=== PATIENT | male | born 1955 | race Caucasian/White ===

== ENCOUNTER → 2016-03-22 | Outpatient (CLI) | payer MEDICARE ==
[2016-03-22 14:06] LABS: HEMATOCRIT 43.3 % (37.9-51.0); HEMOGLOBIN 14.9 g/dL (13.5-17.0); HGB HCT DIFFERENCE 1.4; MEAN CORPUSCULAR HEMOGLOBIN 32.3 pg (27.0-33.4); MEAN CORPUSCULAR HGB CONC 34.4 g/dL (32.0-36.0); MEAN CORPUSCULAR VOLUME 94 fl (80-97); RED BLOOD COUNT 4.61 10^6/uL (4.35-5.55); RED CELL DISTRIBUTION WIDTH 14.4 % (11.5-14.0); WHITE BLOOD COUNT 5.3 10^3/uL (4.0-10.5)
[2016-03-22 14:27] LABS: ALANINE AMINOTRANSFERASE 36 U/L (21-72); ALBUMIN 4.1 g/dL (3.5-5.0); ALKALINE PHOSPHATASE 47 U/L (38-126); ANION GAP 12 (5-19); ASPARTATE AMINO TRANSFERASE 23 U/L (17-59); BILIRUBIN,TOTAL 0.6 mg/dL (0.2-1.3); BLOOD UREA NITROGEN 32 mg/dL (7-20); CALCIUM 9.6 mg/dL (8.4-10.2); CARBON DIOXIDE 29 mmol/L (22-30); CHLORIDE 101 mmol/L (98-107); CREATININE RESULT 1.23 mg/dL (0.52-1.25); Direct HDL 24 mg/dL (>40); GLUCOSE 218 mg/dL (75-110); POTASSIUM 5.4 mmol/L (3.6-5.0); TRIGLYCERIDES 172 mg/dL (<150)
[2016-03-22 14:38] LABS: DIRECT LDL 72 mg/dL (<100)
[2016-03-22 14:41] LABS: VLDL CHOLESTEROL 34.4 mg/dL (10-31)
== END ==
LOC: OD 12:39
PROVIDERS: ATTEND Nurse Practitioner
DX: E11.9 Type 2 diabetes mellitus without complications (principal); E03.9 Hypothyroidism, unspecified; R51 Headache; Z79.01 Long term (current) use of anticoagulants; Z79.899 Other long term (current) drug therapy; Z51.81 Encounter for therapeutic drug level monitoring
CPT/HCPCS: 36415; 80053; 80061; 83036; 84443; 85027; 85610

== ENCOUNTER → 2016-05-24 | Outpatient (CLI) | payer MEDICARE | LOC: RAD 09:56 | PROVIDERS: ATTEND Internal Medicine | DX: R10.9 Unspecified abdominal pain (principal); R10.2 Pelvic and perineal pain; D38.1 Neoplasm of uncertain behavior of trachea, bronchus and lung | CPT/HCPCS: 71260; 74177; 82565 ==

== ENCOUNTER 2016-09-25 17:13 | Emergency (ER) | payer MEDICARE ==
--- NOTE | 2016-09-25 18:18 | RADIOLOGY REPORT (SQ) ---
EXAM DESCRIPTION: CT CERVICAL SPINE WITHOUT COMPLETED DATE/TIME: 09/25/2016 6:04 pm REASON FOR STUDY: 10, Fall; h/o aphasia and stroke COMPARISON: None. TECHNIQUE: Axial images acquired through the cervical spine without intravenous contrast. Images re viewed with lung, soft tissue and bone windows. Reconstructed coronal and sagittal MPR images review ed. Images stored on PACS. All CT scanners at this facility use dose modulation, iterative reconstruction, and/or weight based d osing when appropriate to reduce radiation dose to as low as reasonably achievable (ALARA). [facility]: Dose Right [facility]: CareDose [facility]: Dose Right [facility]: Teradose 4D [facility]: [employer] RADIATION DOSE: Up-to-date CT equipment and radiation dose reduction techniques were employed. CTDIv ol: 24.2 mGy. DLP: 513 mGy-cm. mGy. LIMITATIONS: None. FINDINGS: ALIGNMENT: Anatomic. MINERALIZATION: Normal. VERTEBRAL BODIES: No fractures or dislocation. DISCS: Multilevel disc space narrowing with osteophytes. FACETS, LATERAL MASSES, POSTERIOR ELEMENTS: Facet arthropathy. No fractures. No dislocation. No ac ashly findings. HARDWARE: None in the spine. VISUALIZED RIBS: No fractures. LUNG APICES AND SOFT TISSUES: See separate CT chest report. OTHER: No other significant finding. IMPRESSION: CHRONIC DEGENERATIVE CHANGES. NO ACUTE FINDINGS. TECHNICAL DOCUMENTATION: JOB ID: [id number] [facility] [id number]: Final reports with documentation of one or more dose reduction techniques (e.g., Automate d exposure control, adjustment of the mA and/or kV according to patient size, use of iterative recons truction technique) 2010 [employer]- All Rights Reserved
--- NOTE | 2016-09-25 18:19 | ER Document Report ---
ED Fall - General Information source: Patient TRAVEL OUTSIDE OF THE U[place] IN LAST 30 DAYS: No - HPI Occurred: Just prior to arrival Where: Home Associated symptoms: Other - See above Location of injury/pain: Upper extremity Quality of pain: Dull <SAMMY BARAKAT - Last Filed: 09/25/16 19:58> <MEME BRICE - Last Filed: 09/26/16 00:49> - General Chief Complaint: Fall Stated Complaint: FALL HIP PAIN Time Seen by Provider: 09/25/16 17:35 Notes: 60-year-old male with past medical history of a stroke in 2011 causing some right-sided weakness as well as expressive and intermittent receptive aphasia. Patient was in the bathroom for a longer period of time than normal according to the who then went in to see the patient and found him laying face. The floor. Patient was unable to completely answer how this occurred. Patient supposedly was incontinent of stool and urine. Patient had a history of seizures previous but currently is not on antiseizure medications. denies any recent runny nose, congestion, fevers, vomiting, or diarrhea. states that the patient did answer that he was having some chest pain possibly after being found on the ground. states that the patient also was having some "raspy breathing" after the fall. Patient takes warfarin. Patient is not currently answering questions at this time. (SAMMY BARAKAT) - Related data Allergies/Adverse Reactions: No Known Allergies Allergy (Verified 12/30/14 17:56) Past Medical History - General Information source: Relative - Social History Smoking Status: Former Smoker Cigarette use (# per day): No Chew tobacco use (# tins/day): No Smoking Education Provided: No Frequency of alcohol use: None Drug Abuse: None Family History: Reviewed & Not Pertinent - Past Medical History Cardiac Medical History: Reports: Hx Atrial Fibrillation, Hx Congestive Heart Failure, Hx Hypertension Comment Only: Hx Heart Attack - quad bypass Endocrine Medical History: Reports: Hx Diabetes Mellitus Type 2 Past Surgical History: Reports: Hx Cardiac Surgery - pacer/defib <SAMMY BARAKAT - Last Filed: 09/25/16 19:58> Review of Systems - Review of Systems -: Yes ROS unobtainable due to patient's medical condition <SAMMY BARAKAT - Last Filed: 09/25/16 19:58> Physical Exam <SAMMY BARAKAT - Last Filed: 09/25/16 19:58> <MEME BRICE - Last Filed: 09/26/16 00:49> - Vital signs Vitals: Temp Pulse Resp BP Pulse Ox 98.0 F 70 17 171/83 H 93 09/25/16 17:41 09/25/16 17:41 09/25/16 17:41 09/25/16 17:41 09/25/16 17:41 Notes: Reviewed vital signs and nursing note as charted by RN. CONSTITUTIONAL: Patient tries to open and he does track me. He however does not answer questions and only intermittently follows commands HEAD: Normocephalic; atraumatic EYES: PERRL ENT: Normal nose; no rhinorrhea; moist mucous membranes; pharynx without lesions noted NECK: Supple without meningismus; non-tender; no cervical lymphadenopathy, no masses CARD: Regular rate and rhythm; no murmurs, no clicks, no rubs, no gallops; symmetric distal pulses RESP: Normal chest excursion without splinting or tachypnea; patient has some rhonchorous breath sounds bilaterally with no obvious wheezing or rales ABD/GI: Normal bowel sounds; non-distended; soft, non-tender; no palpable masses or bruits auscultated BACK: The back appears normal and is non-tender to palpation EXT: Has some bruising to the right anterior shoulder, no effusions, no edema SKIN: See above NEURO: Patient is moving his left arm and left leg intermittently. Minimal movement to the right arm and right leg. This is baseline according to the right. (SAMMY BARAKAT) Course - Laboratory Result Diagrams: 09/25/16 18:40 09/25/16 18:40 <SAMMY BARAKAT - Last Filed: 09/25/16 19:58> - Laboratory Result Diagrams: 09/25/16 18:40 09/25/16 18:40 <MEME BRICE - Last Filed: 09/26/16 00:49> - Re-evaluation Re-evalutation: Given the above history and physical examination, there is concern about possible head trauma, neck trauma, or back trauma. Given the difficulty in interviewing the patient, unwitnessed fall/syncopal episode/possible seizure we will CT scan the head, cervical spine, chest, place the patient on the monitor, obtain an EKG, with an x-ray to the right shoulder and pelvis. 09/25/16 19:19 CT scan of the head, neck, and chest as recorded. X-ray of the shoulder and pelvis show no acute fractures. EKG shows ventricular paced rhythm with a heart rate of 70. 09/25/16 19:30 Troponin has returned. No change in exam. EKG as recorded. 09/25/16 19:43 Patient is now much more awake and alert. Patient denies any headache or chest pain at this time. He does answer questions by smiling and nodding. Patient does not remember the incident. I have loaded the patient with Keppra. Patient is already therapeutic on Coumadin and I do not believe heparin or aspirin is indicated. Patient denies any shortness of breath and has no calf pain or leg swelling. Patient is already therapeutic on his Coumadin. I do not believe CTA is necessary at this time. I have called the patient's cardiology group at [facility] to assist transfer. Patient now awake has no raspy respirations and is breathing comfortably in no acute distress. (SAMMY BARAKAT) 09/26/16 00:48 Transport in ED. Reassessed patient and he is stable for transport. (MEME BRICE) - Vital Signs Vital signs: Temp Pulse Resp BP Pulse Ox 98.0 F 70 20 116/64 93 09/25/16 17:41 09/25/16 17:41 09/25/16 22:01 09/25/16 22:01 09/25/16 22:01 - Laboratory Laboratory results interpreted by me: 09/25/16 09/25/16 09/25/16 18:40 18:40 18:40 WBC 13.7 H MCV 98 H RDW 15.0 H Band Neutrophils % 19 H Lymphocytes % (Manual) 6 L Abs Neuts (Manual) 12.2 H PT 36.2 H BUN 38 H Creatinine 1.59 H Est GFR ( Amer) 54 L Est GFR (Non-Af Amer) 45 L Glucose 238 H Urine Glucose (UA) Urine Blood Phenytoin 09/25/16 09/25/16 19:18 21:27 WBC MCV RDW Band Neutrophils % Lymphocytes % (Manual) Abs Neuts (Manual) PT BUN Creatinine Est GFR ( Amer) Est GFR (Non-Af Amer) Glucose Urine Glucose (UA) 50 H Urine Blood SMALL H Phenytoin < 3.0 L Critical Care Note - Critical Care Note Total time excluding time spent on procedures (mins): 32 <SAMMY BARAKAT - Last Filed: 09/25/16 19:58> Discharge <SAMMY BARAKAT - Last Filed: 09/25/16 19:58> <MEME BRICE - Last Filed: 09/26/16 00:49> - Discharge Clinical Impression: Non-STEMI (non-ST elevated myocardial infarction) Altered mental status, unspecified Qualifiers: Altered mental status type: unspecified Qualified Code(s): R41.82 - Altered mental status, unspecified Disposition: [facility] Referrals: MELLISSA KIMBLE NP [Primary Care Provider] - Follow up as needed
--- NOTE | 2016-09-25 18:20 | RADIOLOGY REPORT (SQ) ---
EXAM DESCRIPTION: CT HEAD WITHOUT COMPLETED DATE/TIME: 09/25/2016 6:04 pm REASON FOR STUDY: 10, Fall; h/o aphasia and stroke COMPARISON: 12/30/2014 TECHNIQUE: Axial images acquired through the brain without intravenous contrast. Images reviewed wi th bone, brain and subdural windows. Images stored on PACS. All CT scanners at this facility use dose modulation, iterative reconstruction, and/or weight based d osing when appropriate to reduce radiation dose to as low as reasonably achievable (ALARA). [facility]: Dose Right [facility]: CareDose [facility]: Dose Right [facility]: Teradose 4D [facility]: Smart [employer] RADIATION DOSE: Up-to-date CT equipment and radiation dose reduction techniques were employed. CTDIv ol: 64.6 mGy. DLP: 1163 mGy-cm. mGy. LIMITATIONS: None. FINDINGS: VENTRICLES: There is ex vacuo dilatation of the left lateral ventricle secondary to volume loss. No hydrocephalus. No hemorrhage. No mass lesions. CEREBRUM: Focal area of encephalomalacia seen in the left frontal and temporal lobes related to prior MCA territory infarct. No new infarcts identified. No intracranial hemorrhage. No masses. No mid line shift. No mass effect. CEREBELLUM: Old infarct involving the right cerebellum. No acute abnormality identified. No mass le sions. EXTRAAXIAL SPACES: No fluid collections. No masses. ORBITS AND GLOBE: No intra- or extraconal masses. Normal contour of globe without masses. CALVARIUM: No fracture. PARANASAL SINUSES: No fluid or mucosal thickening. SOFT TISSUES: No mass or hematoma. OTHER: No other significant finding. IMPRESSION: No acute intracranial abnormality identified. Old encephalomalacia involving the left f rontal/ temporal lobes and left cerebellum. Ex vacuo dilatation the left lateral ventricle secondary to volume loss. TECHNICAL DOCUMENTATION: JOB ID: [id number] Quality ID # [id number]: Final reports with documentation of one or more dose reduction techniques (e.g., Au tomated exposure control, adjustment of the mA and/or kV according to patient size, use of iterative reconstruction technique) 2010 [employer]- All Rights Reserved
--- NOTE | 2016-09-25 18:26 | RADIOLOGY REPORT (SQ) ---
EXAM DESCRIPTION: CT CHEST WITHOUT COMPLETED DATE/TIME: 09/25/2016 6:04 pm REASON FOR STUDY: 10, Fall, aphasia; on coumadin COMPARISON: None. TECHNIQUE: CT scan performed of the chest without intravenous contrast. Images reviewed with lung, soft tissue and bone windows. Reconstructed coronal and sagittal MPR images reviewed. All images st ored on PACS. All CT scanners at this facility use dose modulation, iterative reconstruction, and/or weight based d osing when appropriate to reduce radiation dose to as low as reasonably achievable (ALARA). [facility]: Dose Right [facility]: CareDose [facility]: Dose Right [facility]: Teradose 4D [facility]: [email or web address] RADIATION DOSE: Up-to-date CT equipment and radiation dose reduction techniques were employed. CTDIv ol: 14.4 mGy. DLP: 572 mGy-cm. mGy. LIMITATIONS: No technical limitations. FINDINGS: LUNGS AND PLEURA: Stable soft tissue nodule seen in the left upper lobe measuring 2.0 x 1. 7 cm. There diffuse ground-glass densities noted throughout the upper lobes of both lungs could repr esent areas of edema, mild hemorrhage, and/ or infection. Correlate clinically. No other nodular op acities are identified. No pneumothorax. No significant effusion. HILAR AND MEDIASTINAL STRUCTURES: Stable prominent lymph nodes noted within the mediastinum no medias tinal mass or significant adenopathy. HEART AND VASCULAR STRUCTURES: Four-chamber cardiomegaly. Stable aneurysmal dilatation of the ascend ing thoracic aorta measuring 4.2 cm the level the right main pulmonary artery. No aneurysm of the de scending thoracic aorta. Postsurgical changes from CABG. UPPER ABDOMEN: No significant findings. Stable nodular lesions seen in the segment 4 of the liver, t gael not completely evaluated on this study. Limited exam. THYROID AND OTHER SOFT TISSUES: No masses. No adenopathy. BONES: No significant finding. HARDWARE: Left chest pacer. OTHER: No other significant findings. IMPRESSION: 1. Stable known soft tissue nodule seen in the left upper lobe in comparison the study from May 2016. No other nodules are identified. 2. Ground-glass densities noted in both upper lobes which could represent mild edema, hemorrhage, or infection. Correlate clinically. No pneumothorax. No focal consolidations. No effusion. 3. Segment 4 liver nodule is seen on this study and appears to be essentially stable though not comp letely evaluated on this study. 4. Four-chamber cardiomegaly. Stable mild ascending aortic aneurysm measuring 4.2 cm greatest AP di mension at the right main pulmonary artery. TECHNICAL DOCUMENTATION: JOB ID: [id number] Quality ID # [id number]: Final reports with documentation of one or more dose reduction techniques (e.g., Au tomated exposure control, adjustment of the mA and/or kV according to patient size, use of iterative reconstruction technique) 2010 [employer]- All Rights Reserved
[2016-09-25 18:58] LABS: PROTHROMBIN TIME 36.2 SEC (11.4-15.4)
--- NOTE | 2016-09-25 19:03 | RADIOLOGY REPORT (SQ) ---
EXAM DESCRIPTION: PELVIS AP COMPLETED DATE/TIME: 09/25/2016 6:56 pm REASON FOR STUDY: 10, fall COMPARISON: None. NUMBER OF VIEWS: One view TECHNIQUE: AP Pelvis LIMITATIONS: None. FINDINGS: MINERALIZATION: Normal. HIPS: No acute fracture or dislocation. No worrisome bone lesions. PELVIS AND SACRUM: No acute fracture or dislocation. No worrisome bone lesions. PUBIS AND ISCHIUM: No acute fracture. LOWER LUMBAR SPINE: No significant findings as visualized. SOFT TISSUES: Vascular calcifications. OTHER: No other significant finding. IMPRESSION: NO RADIOGRAPHIC EVIDENCE OF ACUTE INJURY. TECHNICAL DOCUMENTATION: JOB ID: [id number] [employer]- All Rights Reserved
--- NOTE | 2016-09-25 19:04 | RADIOLOGY REPORT (SQ) ---
EXAM DESCRIPTION: SHOULDER RIGHT 2 OR MORE VIEWS COMPLETED DATE/TIME: 09/25/2016 6:56 pm REASON FOR STUDY: 10, fall COMPARISON: None. NUMBER OF VIEWS: Three views. TECHNIQUE: Internal rotation, external rotation, and Y view images acquired of the right shoulder. LIMITATIONS: None. FINDINGS: MINERALIZATION: Normal. BONES: No acute fracture or dislocation. No worrisome bone lesions. JOINTS: No dislocation. Degenerative changes noted in the glenohumeral and acromioclavicular joints VISUALIZED LUNGS AND RIBS: No pneumothorax. No rib fracture. SOFT TISSUES: No radiopaque foreign body. OTHER: No other significant finding. IMPRESSION: No acute fracture or dislocation identified. Degenerative changes noted in the shoulder . TECHNICAL DOCUMENTATION: JOB ID: [id number] [employer]- All Rights Reserved
[2016-09-25 19:05] LABS: HEMATOCRIT 48.7 % (37.9-51.0); HGB HCT DIFFERENCE -0.7; MEAN CORPUSCULAR HGB CONC 32.8 g/dL (32.0-36.0); MEAN CORPUSCULAR VOLUME 98 fl (80-97); RED BLOOD COUNT 4.99 10^6/uL (4.35-5.55); WHITE BLOOD COUNT 13.7 10^3/uL (4.0-10.5)
[2016-09-25 19:10] LABS: ANION GAP 13 (5-19); BLOOD UREA NITROGEN 38 mg/dL (7-20); CALCIUM 9.9 mg/dL (8.4-10.2); CARBON DIOXIDE 23 mmol/L (22-30); CHLORIDE 103 mmol/L (98-107); CREATININE RESULT 1.59 mg/dL (0.52-1.25); GLUCOSE 238 mg/dL (75-110); POTASSIUM 4.5 mmol/L (3.6-5.0); SODIUM 138.9 mmol/L (137-145)
[2016-09-25 19:14] LABS: BASOPHILS % (MANUAL) 0 % (0-2); EOSINOPHILS % (MANUAL) 0 % (0-6); LYMPHOCYTES % (MANUAL) 6 % (13-45); NUCLEATED RED BLOOD CELLS 1 /100 WBC (0); TOTAL CELLS COUNTED 100
[2016-09-25 19:15] LABS: BAND NEUTROPHILS % (MANUAL) 19 % (3-5)
[2016-09-25 19:16] LABS: RBC MORPHOLOGY COMMENT NORMO-CYTIC/CHROMIC
[2016-09-25] MEDS ORDERED: NORMAL SALINE 1000 ML 1,000 ML IV ONE (19:21)
[2016-09-25 19:42] LABS: APPEARANCE,URINE CLEAR; BILIRUBIN,URINE NEGATIVE (NEGATIVE); GLUCOSE, URINE 50 mg/dL (NEGATIVE); KETONES,URINE NEGATIVE (NEGATIVE); LEUKOCYTE ESTERASE,URINE NEGATIVE (NEGATIVE); NITRITE,URINE NEGATIVE (NEGATIVE); PROTEIN,URINE NEGATIVE (NEGATIVE); UROBILINOGEN,URINE NEGATIVE mg/dL (<2.0)
[2016-09-25] MEDS ORDERED: LEVETIRACETAM INJ/PF 500 MG/5 ML SDV IV ONE (19:47)
[2016-09-25] MEDS ORDERED: LEVETIRACETAM 500 MG/NACL-ISO 500 MG/100 ML RTUPB IV ONE (21:00)
--- NOTE | 2016-09-25 21:12 | EKG REPORT ---
SEVERITY:- ABNORMAL ECG - AFIB/FLUTTER AND VENTRICULAR-PACED RHYTHM : Confirmed by: Juan Miguel Paez MD 25-Sep-2016 21:12:05
[2016-09-25] MEDS ORDERED: ASPIRIN 325 MG TABLET PO ONE (23:23)
[2016-09-26] MEDS ORDERED: MORPHINE SULFATE 10 MG/ML INJ IV ONE (00:47)
[2016-09-26 00:50] VITALS: BP 123/59
[2016-09-26 17:17] LABS: PATH REVIEW PATHOLOGIST REVIEWED
== END 2016-09-26 01:05 | disposition short-term general hospital (02) ==
LOC: ER 17:13
DX: I21.4 Non-ST elevation (NSTEMI) myocardial infarction (principal); R41.82 Altered mental status, unspecified; G40.909 Epilepsy, unspecified, not intractable, without status epilepticus; I69.320 Aphasia following cerebral infarction; I69.351 Hemiplegia and hemiparesis following cerebral infarction affecting right dominant side; I48.91 Unspecified atrial fibrillation; I10 Essential (primary) hypertension; Z79.01 Long term (current) use of anticoagulants; Z87.891 Personal history of nicotine dependence
CPT/HCPCS: 93005; 99291; 51701; 96365; 36415; 80162; 80185; 85025; 85610; 80048; 81001; 84484; 72170; 73030; 70450; 71250; 72125; 93010; J7030; J1953

== ENCOUNTER 2016-10-20 14:30 | Emergency (ER) | payer MEDICARE ==
--- NOTE | 2016-10-20 15:52 | ER Document Report ---
ED Medical Screen (RME) - General Chief Complaint: Hip Pain Stated Complaint: HIP PAIN Time Seen by Provider: 10/20/16 15:51 Mode of Arrival: Ambulatory Information source: Patient Notes: Is a 60-year-old man with a history of CVA (aphasia, right-sided weakness), atrial fibrillation (on Coumadin) who presents to the emergency room with atraumatic pain to the right hip. Patient notes that he has a hematoma over the right hip area. Patient did have a fall last week where he had his left hip area and that was sore for a day. He states that the right side never hurt up until yesterday when it got swollen. Patient does ambulate with assistance and there is been no change in gait. TRAVEL OUTSIDE OF THE [place] IN LAST 30 DAYS: No - HPI Onset: Yesterday Onset/Duration: Gradual Quality of pain: Dull Severity: Moderate Pain Level: 3 Associated Symptoms: denies: Chills, Fever, Slow to respond Exacerbated by: Denies Relieved by: Denies Similar symptoms previously: No Recently seen / treated by doctor: No - Related Data Smoking: Non-smoker Frequency of alcohol use: None Drug Abuse: None Allergies/Adverse Reactions: No Known Allergies Allergy (Verified 10/20/16 14:38) Past Medical History - General Information source: Patient - Social History Cigarette use (# per day): No Chew tobacco use (# tins/day): No Frequency of alcohol use: None Drug Abuse: None Lives with: Family Family history: None - Past Medical History Cardiac Medical History: Reports: Hx Atrial Fibrillation, Hx Congestive Heart Failure, Hx Hypertension Comment Only: Hx Heart Attack - quad bypass Endocrine Medical History: Reports: Hx Diabetes Mellitus Type 2 Renal/ Medical History: Denies: Hx Peritoneal Dialysis Past Surgical History: Reports: Hx Cardiac Surgery - pacer/defib Review of Systems - Review of Systems Constitutional: denies: Chills, Fever EENT: No symptoms reported Cardiovascular: No symptoms reported Respiratory: No symptoms reported Gastrointestinal: No symptoms reported Genitourinary: No symptoms reported Male Genitourinary: No symptoms reported Musculoskeletal: See HPI Skin: No symptoms reported Hematologic/Lymphatic: No symptoms reported Neurological/Psychological: No symptoms reported Physical Exam - Vital signs Vitals: Temp Pulse Resp BP Pulse Ox 98.6 F 72 20 125/80 97 10/20/16 14:36 10/20/16 14:36 10/20/16 14:36 10/20/16 14:36 10/20/16 14:36 Notes: Physical exam: GENERAL: 60-year-old man HEAD: Atraumatic, normocephalic. EYES: Pupils equal round and reactive to light, extraocular movements intact, sclera anicteric, conjunctiva are normal. ENT: TMs normal, nares patent, oropharynx clear without exudates. Moist mucous membranes. NECK: Normal range of motion, supple without lymphadenopathy or JVD. LUNGS: Breath sounds clear to auscultation bilaterally and equal. No wheezes rales or rhonchi. HEART: Regular rate and rhythm without murmurs, rubs or gallops. ABDOMEN: Soft, normoactive bowel sounds. No tenderness to palpation. No guarding, no rebound. No masses appreciated. EXTREMITIES:, Right hip hematoma NEUROLOGICAL: Cranial nerves II through XII grossly intact. Normal speech, aphasic PSYCH: Normal mood, normal affect. SKIN: Warm, Dry, normal turgor, no rashes or lesions noted. Course - Re-evaluation Re-evalutation: 10/20/16 17:48 : Note: The right hip hematoma seems to be spontaneous and not related to the fall 1 week ago. He just started having pain yesterday. His vital signs are stable. His INR is slightly supratherapeutic (3.26) and I have advised him to hold it for tonight. He does have a significant history of thrombosis so we do not want to just discontinue the Coumadin. His crit was 48 1 month ago and that actually seems a little abnormally high. When you compare the hemoglobin and hematocrit to this past March, there is not a significant drop. In any event, we will need to keep an eye on it. I have given the patient's a copy of today's labs. He will follow-up with Marva Umaña on Sunday. I have advised them to return to the ER for worsening swelling or pain and we can recheck the H&H. - Vital Signs Vital signs: Temp Pulse Resp BP Pulse Ox 98.6 F 72 14 125/80 97 10/20/16 14:36 10/20/16 14:36 10/20/16 15:44 10/20/16 14:36 10/20/16 14:36 - Laboratory Result Diagrams: 10/20/16 16:25 10/20/16 16:25 Laboratory results interpreted by me: 10/20/16 10/20/16 10/20/16 16:25 16:25 16:25 RBC 3.91 L Hgb 12.7 L MCV 98 H RDW 14.9 H PT 34.7 H BUN 28 H Glucose 138 H Doctor's Discharge - Discharge Clinical Impression: Hip hematoma, right Qualifiers: Encounter type: initial encounter Qualified Code(s): S70.01XA - Contusion of right hip, initial encounter Condition: Stable Disposition: HOME, SELF-CARE Additional Instructions: Recommendations: Rest, drink plenty of fluids, hold the Coumadin tonight. Take the pain medicine as needed. Ice packs to the right hip. Return to the emergency room for increasing swelling or pain: We will have to keep a close eye on this as well as the anemia studies. Prescriptions: Oxycodone HCl/Acetaminophen [Percocet 5-325 mg Tablet] 1 - 2 tab PO ASDIR PRN # 25 tablet PRN Reason:
[2016-10-20 16:53] LABS: ABSOLUTE BASOPHILS # (AUTO) 0.1 10^3/uL (0.0-0.2); ABSOLUTE EOSINOPHILS # (AUTO) 0.2 10^3/uL (0.0-0.6); ABSOLUTE MONOCYTES (AUTO) 0.6 10^3/uL (0.1-1.4); ABSOLUTE NEUT (AUTO) 5.1 10^3/uL (1.7-8.2); EOSINOPHILS % (AUTO) 2.3 % (0-6); HEMATOCRIT 38.4 % (37.9-51.0); HEMOGLOBIN 12.7 g/dL (13.5-17.0); HGB HCT DIFFERENCE -0.3; LYMPHOCYTES % (AUTO) 14.3 % (13-45); MEAN CORPUSCULAR HEMOGLOBIN 32.5 pg (27.0-33.4); MEAN CORPUSCULAR HGB CONC 33.1 g/dL (32.0-36.0); MEAN CORPUSCULAR VOLUME 98 fl (80-97); MONOCYTES % (AUTO) 8.2 % (3-13); RED BLOOD COUNT 3.91 10^6/uL (4.35-5.55); RED CELL DISTRIBUTION WIDTH 14.9 % (11.5-14.0); SEGMENTED NEUTROPHILS % (AUTO) 74.2 % (42-78); WHITE BLOOD COUNT 6.9 10^3/uL (4.0-10.5)
[2016-10-20 16:59] LABS: PROTHROMBIN TIME 34.7 SEC (11.4-15.4)
[2016-10-20 17:06] LABS: ANION GAP 12 (5-19); BLOOD UREA NITROGEN 28 mg/dL (7-20); CALCIUM 9.2 mg/dL (8.4-10.2); CARBON DIOXIDE 26 mmol/L (22-30); CHLORIDE 103 mmol/L (98-107); CREATININE RESULT 1.23 mg/dL (0.52-1.25); GLUCOSE 138 mg/dL (75-110); SODIUM 140.6 mmol/L (137-145)
[2016-10-20] MEDS ORDERED: HYDROCODONE/ACETAMINOPHEN 5-325 MG 6 TAB/DSPK PO PRN (17:37)
[2016-10-20 18:22] VITALS: BP 132/94
--- NOTE | 2016-10-20 18:30 | RADIOLOGY REPORT (SQ) ---
EXAM DESCRIPTION: HIP RIGHT AP/LATERAL COMPLETED DATE/TIME: 10/20/2016 6:18 pm REASON FOR STUDY: right hip hematoma COMPARISON: None. NUMBER OF VIEWS: Two views. TECHNIQUE: AP pelvis and additional frog-leg view of the right hip. LIMITATIONS: None. FINDINGS: MINERALIZATION: Normal. RIGHT HIP: No fracture or dislocation. No worrisome bone lesions. LEFT HIP: No fracture or dislocation. No worrisome bone lesions. PUBIS AND ISCHIUM: No fracture. PELVIS: No fracture. SACRUM: No fracture or dislocation. No worrisome bone lesions. LOWER LUMBAR SPINE: No fracture or dislocation. No worrisome bone lesions. No significant disc disea se. SOFT TISSUES: No findings. OTHER: No other significant finding. IMPRESSION: NEGATIVE STUDY OF THE RIGHT HIP. NO RADIOGRAPHIC EVIDENCE OF ACUTE INJURY. TECHNICAL DOCUMENTATION: JOB ID: [id number] [employer]- All Rights Reserved
== END 2016-10-20 19:00 | disposition home or self-care (01) ==
LOC: ER 14:30
DX: S70.01XA Contusion of right hip, initial encounter (principal); X58.XXXA Exposure to other specified factors, initial encounter; I48.91 Unspecified atrial fibrillation; Z79.01 Long term (current) use of anticoagulants; I69.320 Aphasia following cerebral infarction; I69.351 Hemiplegia and hemiparesis following cerebral infarction affecting right dominant side; I10 Essential (primary) hypertension; I25.2 Old myocardial infarction; Z95.810 Presence of automatic (implantable) cardiac defibrillator
CPT/HCPCS: 99283; 36415; 85025; 85610; 80048; 73502; A9270

== ENCOUNTER 2019-11-27 09:04 | Day surgery (SDC) | payer MEDICARE ==
[~2019-11-27 09:04] MED LIST: KETOROLAC TROMETHAMINE 0.45% 4 DROP/0.4 ML DROPERETTE OS PRN
[2019-11-27] MEDS: BESIFLOXACIN HCL 0.6% OPH SUSP 5 ML BOTTLE OS PRN ×4 (09:59→11:10)
[2019-11-27] MEDS: TROPICAMIDE 1% OPH SOLN 15 ML OS PRN ×3 (09:59→10:18)
[2019-11-27] MEDS: TETRACAINE HCL 0.5% OPH SOLN 4 ML OS PRN ×4 (09:59→10:33)
[2019-11-27] MEDS: CYCLOPENTOLATE 0.2%/PHENYLEPHRINE 1% OPH SOLN 2 ML OS PRN ×3 (09:59→10:18)
[2019-11-27] MEDS ORDERED: FENTANYL CITRATE INJ/PF 100 MCG/2 ML AMPUL ONE (10:05)
[2019-11-27] MEDS ORDERED: MIDAZOLAM 2 MG/2 ML INJ ONE (10:05)
[2019-11-27] MEDS: EPINEPHRINE INJ/PF 1 MG/1 ML AMPULE ONE ×2 (10:40)
[2019-11-27] MEDS: LIDOCAINE 1%/PHENYLEPHRINE 1.5% 0.8 ML SYRINGE ONE ×2 (10:40)
[2019-11-27] MEDS: CHONDR SU A NA/HYALUR INTRAOC KIT (SURGICARE) ONE ×2 (10:40)
[2019-11-27] MEDS ORDERED: TOBRAMYCIN SULFATE/DEXAMETH OPH OINTMENT 3.5 GM ONE (10:49)
[2019-11-27] MEDS: HYALURONIDASE INJ 150 UNIT/1 ML VIAL ONE ×2 (10:53)
[2019-11-27] MEDS: BUPIVACAINE HCL 0.75% INJ/PF (7.5 MG/1 ML) 10 ML SDV ONE ×2 (10:53)
[2019-11-27] MEDS: LIDOCAINE 2% INJ-PF (20 MG/ML) 10 ML AMPUL ONE ×2 (10:53)
[2019-11-27] MEDS: TRYPAN BLUE 0.06 % OPH SOLN 0.5 ML DISP.SYRIN ONE ×2 (11:00)
[2019-11-27] MEDS: CHONDR SU A NA/HYALUR SOD 0.5 ML DISP.SYRIN ONE ×2 (11:00)
[2019-11-27] MEDS: DORZOLAMIDE HCL 2%/TIMOLOL MALEAT 0.5% OPH SOLN 10 ML OS PRN ×2 (11:10)
[2019-11-27] MEDS: PREDNISOLONE ACETATE 1% OPH SUSP 5 ML OS PRN ×2 (11:10)
[2019-11-27] MEDS ORDERED: BALANCED SALT IRRIG SOLN COMB2 15 ML BOTTLE ONE (11:26)
--- NOTE | 2019-11-27 14:39 | Operative Report ---
Operative Report-[facility] Operative Report: DATE OF SURGERY: 11/27/2019 PREOPERATIVE DIAGNOSIS: Other cataracts, left eye POSTOPERATIVE DIAGNOSIS: Other cataract, left eye OPERATION: Complex cataract extraction with insertion of an IOL of the left eye with use of trypan blue dye. Intraocular Lens Model: [14.5 diopter SN 60 WF lens] Patient underwent surgery for difficulty seeing up close SURGEON: Delfino Lopez MD ANESTHESIA: Topical PROCEDURE: After obtaining appropriate consent, the patient's left eye was prepped and draped in a sterile fashion as well as the surgeon in the sterile manner and cataract surgery was started. First a paracentesis blade was used to make a side-port incision. Viscoelastic was used to inflate the anterior yuko mber. Next a 2.4 mm incision was made with a 2.4 mm blade, clear corneal temporarily. Prior to making the capsulorrhexis trypan blue dye was used to stain the anterior capsule. A continuous capsulorrhexis was made using a cystotome and Utrata forceps. Following this hydrodissection was carried out to make the lens fully loose and mobile and it was rotated 90 degrees. Following this, a divide and conquer technique was used to phacoemulsify the lens. The remaining cortex was removed with an irrigation/aspiration. Provisc was instilled into the capsular bag to inflate the bag.The intraocular lens was placed. The remaining viscoelastic material was removed with irrigation/aspiration. Following this, the incision was found to be watertight. Besivance and Cosopt was instilled into the eye and a protective shield was placed over the eye. The patient was returned to the postoperative recovery in a stable condition.
== END 2019-11-27 11:58 | disposition home or self-care (01) ==
LOC: SC 09:04
PROVIDERS: ATTEND Internal Medicine
DX: H25.89 Other age-related cataract (principal); H52.13 Myopia, bilateral; E11.9 Type 2 diabetes mellitus without complications; I10 Essential (primary) hypertension; I69.398 Other sequelae of cerebral infarction; H53.8 Other visual disturbances; I48.91 Unspecified atrial fibrillation; I25.2 Old myocardial infarction; E05.90 Thyrotoxicosis, unspecified without thyrotoxic crisis or storm; I69.320 Aphasia following cerebral infarction; Z79.02 Long term (current) use of antithrombotics/antiplatelets; Z79.890 Hormone replacement therapy; Z87.891 Personal history of nicotine dependence; Z95.0 Presence of cardiac pacemaker; Z95.1 Presence of aortocoronary bypass graft; Z79.82 Long term (current) use of aspirin; Z79.4 Long term (current) use of insulin; Z79.899 Other long term (current) drug therapy
CPT/HCPCS: 82962; 00142; 66982; V2632; J2250; J3490 ×8; A9270 ×2; J0171; J3010; J3470; 142

== ENCOUNTER 2019-12-18 10:19 | Day surgery (SDC) | payer MEDICARE ==
[~2019-12-18 10:19] MED LIST changes: +CHONDR SU A NA/HYALUR INTRAOC KIT (SURGICARE) ONE; +DORZOLAMIDE HCL 2%/TIMOLOL MALEAT 0.5% OPH SOLN 10 ML OD PRN; +EPINEPHRINE INJ/PF 1 MG/1 ML AMPULE ONE; +KETOROLAC TROMETHAMINE 0.45% 4 DROP/0.4 ML DROPERETTE OD PRN; -KETOROLAC TROMETHAMINE 0.45% 4 DROP/0.4 ML DROPERETTE OS PRN; +LIDOCAINE 1%/PHENYLEPHRINE 1.5% 1 ML VIAL ONE; +LIDOCAINE 2% INJ-PF (20 MG/ML) 10 ML AMPUL ONE; +PREDNISOLONE ACETATE 1% OPH SUSP 5 ML OD PRN
[2019-12-18] MEDS ORDERED: PROPOFOL INJ 200 MG/20 ML VIAL IV ONE (10:20)
[2019-12-18] MEDS: CYCLOPENTOLATE 0.2%/PHENYLEPHRINE 1% OPH SOLN 2 ML OD PRN ×3 (10:52→11:02)
[2019-12-18] MEDS: TROPICAMIDE 1% OPH SOLN 15 ML OD PRN ×3 (10:52→11:02)
[2019-12-18] MEDS: BESIFLOXACIN HCL 0.6% OPH SUSP 5 ML BOTTLE OD PRN ×3 (10:52→11:58)
[2019-12-18] MEDS: TETRACAINE HCL 0.5% OPH SOLN 4 ML OD PRN ×3 (10:53→11:29)
[2019-12-18] MEDS ORDERED: FENTANYL CITRATE INJ/PF 100 MCG/2 ML AMPUL ONE (11:11)
[2019-12-18] MEDS ORDERED: MIDAZOLAM 2 MG/2 ML INJ ONE (11:11)
[2019-12-18] MEDS ORDERED: HYALURONIDASE INJ 150 UNIT/1 ML VIAL ONE (11:16)
[2019-12-18] MEDS ORDERED: BUPIVACAINE HCL 0.75% INJ/PF (7.5 MG/1 ML) 10 ML SDV ONE (11:16)
[2019-12-18] MEDS ORDERED: LIDOCAINE 2% INJ-PF (20 MG/ML) 10 ML AMPUL ONE (11:16)
[2019-12-18] MEDS ORDERED: TRYPAN BLUE 0.06 % OPH SOLN 0.5 ML DISP.SYRIN ONE (11:36)
[2019-12-18] MEDS ORDERED: TOBRAMYCIN SULFATE/DEXAMETH OPH OINTMENT 3.5 GM ONE (11:55)
--- NOTE | 2019-12-18 13:46 | Operative Report ---
Operative Report-[facility] Operative Report: DATE OF SURGERY: 11/18/2019 PREOPERATIVE DIAGNOSIS: Other cataract, right eye POSTOPERATIVE DIAGNOSIS: Other cataract, right eye OPERATION: Complex cataract extraction with insertion of an IOL of the right eye.trypan Blue dye Intraocular Lens Model: [12.5 SN 60 WF] Underwent surgery for difficulty driving at night SURGEON: Delfino Lopez MD ANESTHESIA: Topical PROCEDURE: After obtaining appropriate consent, the patient's right eye was prepped and draped in a sterile fashion as well as the surgeon in the sterile manner and cataract surgery was started. First a paracentesis blade was used to make a side-port incision. Viscoelastic was used to inflate the anterior chamber. Next a 2.4 mm incision was made with a 2.4 mm blade, clear corneal temporarily. trypan blue dye was used to stain the anterior capsule A continuous capsulorrhexis was made using a cystotome and Utrata forceps. Following this hydrodissection was carried out to make the vidal fully loose and mobile and it was rotated. Following this, a divide and conquer technique was used to phacoemulsify the vidal. The remaining cortex was removed with an irrigation/aspiration. Provisc was instilled into the capsular bag to inflate the bag. The intraocular lens was placed. The remaining viscoelastic material was removed with irrigation/aspiration. Following this, the incision was found to be watertight. Besivance and Cosopt was instilled into the eye and a protective shield was placed over the eye. The patient was reurned to the post operative recovery in a stable condition.
== END 2019-12-18 12:30 | disposition home or self-care (01) ==
LOC: SC 10:19
PROVIDERS: ATTEND Internal Medicine
DX: H25.89 Other age-related cataract (principal); E11.36 Type 2 diabetes mellitus with diabetic cataract; Z96.1 Presence of intraocular lens; I10 Essential (primary) hypertension; I25.2 Old myocardial infarction; E03.9 Hypothyroidism, unspecified; Z79.4 Long term (current) use of insulin; I69.398 Other sequelae of cerebral infarction; H53.8 Other visual disturbances; R47.01 Aphasia; Z87.891 Personal history of nicotine dependence; Z95.810 Presence of automatic (implantable) cardiac defibrillator; I25.10 Atherosclerotic heart disease of native coronary artery without angina pectoris; I48.91 Unspecified atrial fibrillation; R56.9 Unspecified convulsions
CPT/HCPCS: 66982; 82962; V2632; J2250; J3490 ×5; A9270 ×2; J0171; J3010; J2704; J3470; 142